=== PATIENT | male | born 1990 | race Caucasian/White ===

== ENCOUNTER 2021-01-09 16:19 | Emergency (ER) | payer MEDICAID ==
--- NOTE | 2021-01-09 19:10 | EDM.PDOC ---
ED HPI GENERAL MEDICAL PROBLEM - General Chief Complaint: General Stated Complaint: 97* TEMP, ALL SYMPTOMS Time Seen by Provider: 01/09/21 19:05 Source of Information: Reports: Patient History Limitations: Reports: No Limitations - History of Present Illness INITIAL COMMENTS - FREE TEXT/NARRATIVE: 30 y/o M reported covid symptoms to the nurse. A covid test was ordered and upon my entry to interview the pt he states he was not wanting medical attention and does not want to be evaluated. He states he is more concerned for his girlfriend. - Related Data Allergies Allergy/AdvReac Type Severity Reaction Status Date / Time No Known Allergies Allergy Verified 01/09/21 18:29 Home Meds: Home Meds . [No Known Home Meds] 01/09/21 [History] Past Medical History - Past Health History Medical/Surgical History: Denies Medical/Surgical History Social & Family History - Tobacco Use Tobacco Use Status *Q: Current Every Day Tobacco User Years of Tobacco use: 11 Packs/Tins Daily: 0.5 - Caffeine Use Caffeine Use: Reports: Coffee - Recreational Drug Use Recreational Drug Use: No ED ROS GENERAL - Review of Systems Review Of Systems: Comprehensive ROS is negative, except as noted in HPI. ED EXAM, GENERAL - Physical Exam Exam: See Below Free Text/Narrative:: Pt refusing physical exam. Course - Vital Signs Last Recorded V/S: Last Vital Signs Temp 98 F 01/09/21 18:29 Pulse 91 01/09/21 18:29 Resp 20 01/09/21 18:29 BP 173/85 H 01/09/21 18:29 Pulse Ox 100 01/09/21 18:29 - Orders/Labs/Meds Labs: Laboratory Tests 01/09/21 Range/Units 17:05 SARS-CoV-2 RNA ([facility]) Negative (NEGATIVE) - Re-Assessments/Exams Free Text/Narrative Re-Assessment/Exam: 01/09/21 19:09 Upon intitial interview I informed pt that his COVID was neg. He stated he did not anything other than a COVID test. I asked pt if he is refusing further workup. The pt stated he was refusing further workup. I advised the pt to get a further workup and that not getting a workup with risk disease processes going undiagnosed. Pt states he understands and still wishes to refuse. 01/09/21 19:10 Departure - Departure Time of Disposition: 19:10 Disposition: Against Medical Advice 07 Clinical Impression: Left against medical advice - Discharge Information *PRESCRIPTION DRUG MONITORING PROGRAM REVIEWED*: Not Applicable *COPY OF PRESCRIPTION DRUG MONITORING REPORT IN PATIENT [place]: Not Applicable Sepsis Event Note (ED) - Evaluation Sepsis Screening Result: No Definite Risk - Focused Exam Vital Signs: Vital Signs Temp Pulse Resp BP Pulse Ox 01/09/21 18:29 98 F 91 20 173/85 H 100
== END 2021-01-09 19:18 | disposition left against medical advice (07) ==
LOC: DL.ED 16:19
DX: Z20.822 Contact with and (suspected) exposure to COVID-19 (principal); Z72.0 Tobacco use
CPT/HCPCS: 99283; U0002